=== PATIENT | female | born 1955 | race African-American/Black ===

== ENCOUNTER 2023-12-02 12:09 | Inpatient (IN) | payer MEDICARE, OTHER ==
[~2023-12-02] VITALS: Ht 154.9 cm; Wt 83.0 kg
[~2023-12-02 12:09] MED LIST: ACET-2708 PO; ALBU6.7H3 INH; BENZ2TAB65 PO; CELE100C PO; FERR325T6 PO; GABA-532 PO; IBUP-2029 PO; IMAT400T7 PO; LIP40 PO; METO-539 PO; MIRT-111 PO; MONT-46 PO; QUET300T2 PO
[2023-12-02 15:00] LABS: BASOPHILS % 0.8 % (0.0-2.0); EOSINOPHILS % 1.2 % (0.0-5.0); HEMATOCRIT. 40.6 % (36.0-48.0); HEMOGLOBIN. 13.5 g/dL (12.0-16.0); MEAN CORPUSCULAR HEMOGLOBIN 30.4 pg (28.0-32.0); MEAN CORPUSCULAR HGB CONC 33.3 g/dL (31.0-37.0); MEAN CORPUSCULAR VOLUME 91.4 fL (81.0-99.0); MEAN PLATELET VOLUME 7.6 fl (7.4-10.4); MONOCYTES % 13.1 % (2.0-8.0); NEUTROPHILS % 55.9 % (40.0-76.0); PLATELET 300 x1000/uL (130-400); RED BLOOD CELL COUNT 4.44 mill/uL (4.2-5.4); RED CELL DISTRIBUTION WIDTH 16.3 % (11.6-14.6); WHITE BLOOD COUNT 5.9 x1000/uL (4.5-11.0)
[2023-12-02 15:04] LABS: CLARITY URINE CLEAR (CLEAR); COLOR URINE YELLOW (YELLOW); GLUCOSE URINE NEGATIVE (NEGATIVE); KETONES URINE NEGATIVE (NEGATIVE); LEUKOCYTE ESTERASE URINE NEGATIVE (NEGATIVE); NITRITE URINE NEGATIVE (NEGATIVE); OCCULT BLOOD URINE NEGATIVE (NEGATIVE); PROTEIN URINE NEGATIVE (NEGATIVE); SPECIFIC GRAVITY URINE 1.019 (1.005-1.030); UROBILINOGEN URINE 0.2 E.U./dL (0.2-1.0)
[2023-12-02 15:13] LABS: ALANINE AMINOTRANSFERASE 24 IU/L (10-49); ALBUMIN 4.7 g/dL (3.2-4.8); ASPARTATE AMINOTRANSFERASE 22 IU/L (<34); BILIRUBIN TOTAL 0.6 mg/dL (0.1-1.0); CALCIUM 9.7 mg/dL (8.7-10.4); CARBON DIOXIDE 29 mEq/L (21-32); CHLORIDE 102 mEq/L (98-107); CREATININE 0.7 mg/dL (0.6-1.0); GLUCOSE 104 mg/dL (70-105); POTASSIUM 4.5 mEq/L (3.5-5.1); PROTEIN TOTAL 6.9 g/dL (6.0-8.3); SODIUM 138 mEq/L (136-145); UREA NITROGEN BLOOD 17 mg/dL (9-23)
[2023-12-02 15:40] LABS: TROPONIN I HIGH SENSITIVITY < 4 ng/L (3.0-34)
[2023-12-02] MEDS ORDERED: MAGNESIUM/ALUMINUM HYDROXIDE/SIMETHICONE 30ML UDC PO ONE (16:30)
[2023-12-02 17:52] LABS: TROPONIN I HIGH SENSITIVITY < 4 ng/L (3.0-34)
[2023-12-02] MEDS: MAGNESIUM/ALUMINUM HYDROXIDE/SIMETHICONE 30ML UDC PO NR (21:28)
[2023-12-03] VITALS (7 sets, daily range): BP systolic 95–119; BP diastolic 56–77; PULSE 69–82; RESP 18–20; TEMP 96.9–98.2
[2023-12-03] MEDS ORDERED: DIPHENHYDRAMINE 50MG/ML VIAL IV PRN (01:30)
[2023-12-03] MEDS ORDERED: ACETAMINOPHEN 325MG TABLET PO PRN (01:30)
[2023-12-03] MEDS ORDERED: ZOLPIDEM TARTRATE 5MG TABLET PO PRN (01:30)
[2023-12-03] MEDS ORDERED: MAGNESIUM/ALUMINUM HYDROXIDE/SIMETHICONE 30ML UDC PO PRN (01:30)
[2023-12-03] MEDS ORDERED: ONDANSETRON HCL 4MG/2ML INJ IV PRN (01:30)
[2023-12-03] MEDS ORDERED: CLONIDINE 0.1MG TABLET PO PRN (01:30)
[2023-12-03] MEDS: DEXT 5%/0.45% NACL 1000ML 1,000 ML IV SCH (01:39)
[2023-12-03] MEDS: ACETAMINOPHEN 325MG TABLET PO PRN (01:40)
[2023-12-03] MEDS: SUCRALFATE 1G TABLET PO SCH (06:37)
[2023-12-03] MEDS: FAMOTIDINE 20MG/2ML VIAL IV SCH (08:50)
[2023-12-04] VITALS: BP 103/65; PULSE 66; RESP 19; TEMP 98
[2023-12-04 04:00] VITALS: BP 140/85; PULSE 70; RESP 20; TEMP 97.7
[2023-12-04 08:00] VITALS: BP 114/55; PULSE 69; RESP 18; TEMP 98.6
[2023-12-04 12:00] VITALS: BP 136/67; PULSE 67; RESP 18; TEMP 98.7
[2023-12-04 15:01] VITALS: BP 136/67; PULSE 62; TEMP 98.7; O2SAT 97
== END 2023-12-04 16:10 | disposition home or self-care (01) | DRG 243 ==
LOC: ER 12:09 → EDBEDREQ 22:18 → EDBEDREQTM 22:18 → 6EST 23:45
PROVIDERS: ADMIT Internal Medicine; ATTEND Internal Medicine
DX: K21.9 Gastro-esophageal reflux disease without esophagitis (principal); E66.9 Obesity, unspecified; I10 Essential (primary) hypertension; R30.9 Painful micturition, unspecified; Z68.34 Body mass index [BMI] 34.0-34.9, adult; Z90.49 Acquired absence of other specified parts of digestive tract; Z90.3 Acquired absence of stomach [part of]; Z86.718 Personal history of other venous thrombosis and embolism; Z86.711 Personal history of pulmonary embolism; Z85.028 Personal history of other malignant neoplasm of stomach
CPT/HCPCS: 36415; 71045; 74177; 80053; 81003; 84484; 85025; 93005; 99285; J3490

== ENCOUNTER 2024-01-06 06:07 | Emergency (ER) | payer MEDICARE, OTHER ==
[~2024-01-06] VITALS: Ht 149.9 cm; Wt 86.0 kg
[2024-01-06 06:32] VITALS: O2SAT 100
[2024-01-06 07:15] LABS: BASOPHILS % 0.6 % (0.0-2.0); EOSINOPHILS % 0.5 % (0.0-5.0); HEMATOCRIT. 40.1 % (36.0-48.0); HEMOGLOBIN. 13.8 g/dL (12.0-16.0); LYMPHOCYTES % 18.7 % (20.0-50.0); MEAN CORPUSCULAR HEMOGLOBIN 31.6 pg (28.0-32.0); MEAN CORPUSCULAR HGB CONC 34.5 g/dL (31.0-37.0); MEAN CORPUSCULAR VOLUME 91.4 fL (81.0-99.0); MEAN PLATELET VOLUME 7.8 fl (7.4-10.4); MONOCYTES % 11.3 % (2.0-8.0); NEUTROPHILS % 68.9 % (40.0-76.0); PLATELET 285 x1000/uL (130-400); RED BLOOD CELL COUNT 4.39 mill/uL (4.2-5.4); RED CELL DISTRIBUTION WIDTH 14.5 % (11.6-14.6); WHITE BLOOD COUNT 7.3 x1000/uL (4.5-11.0)
[2024-01-06 07:29] LABS: ALANINE AMINOTRANSFERASE 35 IU/L (10-49); ALBUMIN 4.7 g/dL (3.2-4.8); ASPARTATE AMINOTRANSFERASE 24 IU/L (<34); BILIRUBIN TOTAL 0.4 mg/dL (0.1-1.0); CALCIUM 9.3 mg/dL (8.7-10.4); CARBON DIOXIDE 28 mEq/L (21-32); CHLORIDE 101 mEq/L (98-107); CREATININE 0.7 mg/dL (0.6-1.0); GLUCOSE 120 mg/dL (70-105); POTASSIUM 3.8 mEq/L (3.5-5.1); PROTEIN TOTAL 7.4 g/dL (6.0-8.3); SODIUM 137 mEq/L (136-145); TROPONIN I HIGH SENSITIVITY 8 ng/L (3.0-34); UREA NITROGEN BLOOD 17 mg/dL (9-23)
[2024-01-06 11:17] LABS: CLARITY URINE CLEAR (CLEAR); COLOR URINE YELLOW (YELLOW); GLUCOSE URINE NEGATIVE (NEGATIVE); KETONES URINE NEGATIVE (NEGATIVE); LEUKOCYTE ESTERASE URINE 1+ (NEGATIVE); NITRITE URINE NEGATIVE (NEGATIVE); OCCULT BLOOD URINE NEGATIVE (NEGATIVE); PH URINE 5.5 (4.5-8.0); PROTEIN URINE TRACE (NEGATIVE); SPECIFIC GRAVITY URINE 1.025 (1.005-1.030); UROBILINOGEN URINE 0.2 E.U./dL (0.2-1.0)
[2024-01-06 11:58] LABS: SQUAMOUS EPITHELIAL CELL URINE 3+ /lpf (RARE/1+)
[2024-01-06 12:00] LABS: BACTERIA URINE 1+
[2024-01-06 12:02] LABS: WBC URINE 0-2 /hpf (0-2)
[2024-01-06 12:04] LABS: RBC URINE 0-2 /hpf (0-2)
[2024-01-06 13:30] VITALS: BP 111/58; PULSE 78; RESP 18; TEMP 98.6
[2024-01-06] MEDS ORDERED: FAMO-135 MT (14:00)
[2024-01-06] MEDS ORDERED: FAMOTIDINE 20MG TABLET PO SCH (21:00)
== END 2024-01-06 14:30 | disposition home or self-care (01) ==
LOC: ER 06:07
DX: K29.70 Gastritis, unspecified, without bleeding (principal); I10 Essential (primary) hypertension; Z90.49 Acquired absence of other specified parts of digestive tract; Z79.899 Other long term (current) drug therapy
CPT/HCPCS: 36415; 74177; 80053; 81003; 84484; 85025; 93005; 99284; 99285

== ENCOUNTER 2024-02-20 10:32 | Emergency (ER) | payer MEDICARE, OTHER ==
[~2024-02-20] VITALS: Ht 149.9 cm; Wt 78.0 kg
[~2024-02-20 10:32] MED LIST changes: +FAMO-135 MT; +P20 MT
[2024-02-20 10:50] VITALS: TEMP 98; O2SAT 97
[2024-02-20 14:29] LABS: BASOPHILS % 0.7 % (0.0-2.0); EOSINOPHILS % 1.2 % (0.0-5.0); HEMATOCRIT. 41.5 % (36.0-48.0); HEMOGLOBIN. 13.4 g/dL (12.0-16.0); LYMPHOCYTES % 16.6 % (20.0-50.0); MEAN CORPUSCULAR HEMOGLOBIN 30.5 pg (28.0-32.0); MEAN CORPUSCULAR HGB CONC 32.2 g/dL (31.0-37.0); MEAN CORPUSCULAR VOLUME 94.7 fL (81.0-99.0); MEAN PLATELET VOLUME 7.8 fl (7.4-10.4); MONOCYTES % 10.2 % (2.0-8.0); NEUTROPHILS % 71.3 % (40.0-76.0); PLATELET 187 x1000/uL (130-400); RED BLOOD CELL COUNT 4.38 mill/uL (4.2-5.4); RED CELL DISTRIBUTION WIDTH 15.5 % (11.6-14.6); WHITE BLOOD COUNT 6.2 x1000/uL (4.5-11.0)
[2024-02-20 14:35] LABS: CHLORIDE 109 mEq/L (98-107); POTASSIUM 3.7 mEq/L (3.5-5.1); SODIUM 139 mEq/L (136-145)
[2024-02-20 14:36] LABS: CARBON DIOXIDE 23 mEq/L (21-32)
[2024-02-20 14:46] LABS: CALCIUM 10.1 mg/dL (8.7-10.4)
[2024-02-20 14:51] LABS: CREATININE 0.7 mg/dL (0.6-1.0); GLUCOSE 138 mg/dL (70-105); UREA NITROGEN BLOOD 10 mg/dL (9-23)
[2024-02-20 14:53] LABS: ALANINE AMINOTRANSFERASE 15 IU/L (10-49); ALBUMIN 4.6 g/dL (3.2-4.8); ASPARTATE AMINOTRANSFERASE 19 IU/L (<34); BILIRUBIN TOTAL 0.6 mg/dL (0.1-1.0); PROTEIN TOTAL 7.1 g/dL (6.0-8.3)
[2024-02-20 15:14] LABS: TROPONIN I HIGH SENSITIVITY < 4 ng/L (3.0-34)
[2024-02-20 18:44] LABS: CLARITY URINE CLEAR (CLEAR); COLOR URINE YELLOW (YELLOW); GLUCOSE URINE NEGATIVE (NEGATIVE); KETONES URINE NEGATIVE (NEGATIVE); LEUKOCYTE ESTERASE URINE NEGATIVE (NEGATIVE); NITRITE URINE NEGATIVE (NEGATIVE); OCCULT BLOOD URINE NEGATIVE (NEGATIVE); PROTEIN URINE NEGATIVE (NEGATIVE); SPECIFIC GRAVITY URINE 1.029 (1.005-1.030); UROBILINOGEN URINE 0.2 E.U./dL (0.2-1.0)
[2024-02-20] MEDS: KETOROLAC 15MG/ML VIAL IM NR (20:00)
[2024-02-20 20:45] LABS: CARBON DIOXIDE 27 mEq/L (21-32); CHLORIDE 107 mEq/L (98-107); SODIUM 139 mEq/L (136-145)
[2024-02-20 20:46] LABS: CALCIUM 10.2 mg/dL (8.7-10.4)
[2024-02-20 20:50] LABS: CREATININE 0.7 mg/dL (0.6-1.0); GLUCOSE 91 mg/dL (70-105)
[2024-02-20 20:51] LABS: UREA NITROGEN BLOOD 12 mg/dL (9-23)
[2024-02-20 20:52] LABS: ALANINE AMINOTRANSFERASE 15 IU/L (10-49); ALBUMIN 4.8 g/dL (3.2-4.8); ASPARTATE AMINOTRANSFERASE 16 IU/L (<34)
[2024-02-20 20:53] LABS: BILIRUBIN TOTAL 0.8 mg/dL (0.1-1.0); PROTEIN TOTAL 7.2 g/dL (6.0-8.3)
[2024-02-20 22:05] VITALS: BP 120/81; PULSE 81; RESP 19
== END 2024-02-20 22:07 | disposition home or self-care (01) ==
LOC: ER 11:06
DX: R10.84 Generalized abdominal pain (principal); J45.909 Unspecified asthma, uncomplicated; E11.9 Type 2 diabetes mellitus without complications; F19.90 Other psychoactive substance use, unspecified, uncomplicated; Z88.8 Allergy status to other drugs, medicaments and biological substances
CPT/HCPCS: 99285; 74176; 71045; 81003; 81025; 83690; 85025; 84484; 36415; 93005; 96372; 80053; J1885

== ENCOUNTER 2024-03-09 08:51 | Emergency (ER) | payer MEDICARE, OTHER ==
[~2024-03-09] VITALS: Ht 160 cm; Wt 64.0 kg
[2024-03-09 08:55] VITALS: O2SAT 98
[2024-03-09 10:12] LABS: BASOPHILS % 0.5 % (0.0-2.0); EOSINOPHILS % 0.3 % (0.0-5.0); HEMATOCRIT. 46.9 % (36.0-48.0); HEMOGLOBIN. 15.5 g/dL (12.0-16.0); MEAN CORPUSCULAR HEMOGLOBIN 30.5 pg (28.0-32.0); MEAN CORPUSCULAR HGB CONC 33.1 g/dL (31.0-37.0); MEAN CORPUSCULAR VOLUME 92.1 fL (81.0-99.0); MEAN PLATELET VOLUME 8.7 fl (7.4-10.4); MONOCYTES % 10.3 % (2.0-8.0); NEUTROPHILS % 67.9 % (40.0-76.0); PLATELET 289 x1000/uL (130-400); RED BLOOD CELL COUNT 5.09 mill/uL (4.2-5.4); RED CELL DISTRIBUTION WIDTH 15.1 % (11.6-14.6); WHITE BLOOD COUNT 5.9 x1000/uL (4.5-11.0)
[2024-03-09 10:23] LABS: CHLORIDE 101 mEq/L (98-107); POTASSIUM 4.4 mEq/L (3.5-5.1); SODIUM 136 mEq/L (136-145)
[2024-03-09 10:24] LABS: CALCIUM 10.2 mg/dL (8.7-10.4)
[2024-03-09 10:29] LABS: CREATININE 0.8 mg/dL (0.6-1.0); GLUCOSE 103 mg/dL (70-105); UREA NITROGEN BLOOD 16 mg/dL (9-23)
[2024-03-09 10:30] LABS: ALANINE AMINOTRANSFERASE 73 IU/L (10-49); ASPARTATE AMINOTRANSFERASE 42 IU/L (<34)
[2024-03-09 10:31] LABS: ALBUMIN 5.4 g/dL (3.2-4.8); BILIRUBIN DIRECT 0.4 mg/dL (<=3.0); BILIRUBIN TOTAL 1.1 mg/dL (0.1-1.0); PROTEIN TOTAL 8.2 g/dL (6.0-8.3)
[2024-03-09 11:08] LABS: CARBON DIOXIDE 20 mEq/L (21-32)
[2024-03-09 14:38] VITALS: BP 139/88; PULSE 76; RESP 16; TEMP 98.1
== END 2024-03-09 14:37 | disposition home or self-care (01) ==
LOC: ER 08:51
DX: R10.9 Unspecified abdominal pain (principal); E11.9 Type 2 diabetes mellitus without complications; J45.909 Unspecified asthma, uncomplicated; Z79.899 Other long term (current) drug therapy
CPT/HCPCS: 36415; 74176; 80048; 80076; 85025; 93005; 99284

== ENCOUNTER 2024-04-07 14:47 | Emergency (ER) | payer MEDICARE, OTHER ==
[~2024-04-07] VITALS: Ht 167.6 cm; Wt 80.0 kg
[2024-04-07 15:08] LABS: BASOPHILS % 0.4 % (0.0-2.0); EOSINOPHILS % 1.2 % (0.0-5.0); HEMOGLOBIN. 12.7 g/dL (12.0-16.0); LYMPHOCYTES % 21.6 % (20.0-50.0); MEAN CORPUSCULAR HEMOGLOBIN 30.6 pg (28.0-32.0); MEAN CORPUSCULAR HGB CONC 33.5 g/dL (31.0-37.0); MEAN CORPUSCULAR VOLUME 91.5 fL (81.0-99.0); MEAN PLATELET VOLUME 7.1 fl (7.4-10.4); MONOCYTES % 11.7 % (2.0-8.0); NEUTROPHILS % 65.1 % (40.0-76.0); PLATELET 305 x1000/uL (130-400); RED BLOOD CELL COUNT 4.15 mill/uL (4.2-5.4); RED CELL DISTRIBUTION WIDTH 15.4 % (11.6-14.6); WHITE BLOOD COUNT 6.2 x1000/uL (4.5-11.0)
[2024-04-07 15:14] LABS: CHLORIDE 110 mEq/L (98-107); POTASSIUM 3.9 mEq/L (3.5-5.1); SODIUM 142 mEq/L (136-145)
[2024-04-07 15:15] LABS: CALCIUM 9.7 mg/dL (8.7-10.4); CARBON DIOXIDE 26 mEq/L (21-32)
[2024-04-07 15:20] VITALS: TEMP 98.4; O2SAT 100
[2024-04-07 15:20] LABS: CREATININE 0.6 mg/dL (0.6-1.0); GLUCOSE 94 mg/dL (70-105); UREA NITROGEN BLOOD 14 mg/dL (9-23)
[2024-04-07 20:38] LABS: ALANINE AMINOTRANSFERASE 16 IU/L (10-49); ALBUMIN 4.1 g/dL (3.2-4.8); ASPARTATE AMINOTRANSFERASE 17 IU/L (<34); BILIRUBIN DIRECT 0.1 mg/dL (<=3.0); BILIRUBIN TOTAL 0.5 mg/dL (0.1-1.0); PROTEIN TOTAL 6.2 g/dL (6.0-8.3)
[2024-04-07] MEDS: MORPHINE SULFATE 2 MG/ML CPJ (NOT FOR IM USE) IV ONE (21:33)
[2024-04-07] MEDS: KETOROLAC 15MG/ML VIAL IV ONE (21:33)
[2024-04-07 23:54] LABS: CLARITY URINE CLEAR (CLEAR); COLOR URINE YELLOW (YELLOW); GLUCOSE URINE NEGATIVE (NEGATIVE); KETONES URINE NEGATIVE (NEGATIVE); LEUKOCYTE ESTERASE URINE 1+ (NEGATIVE); NITRITE URINE NEGATIVE (NEGATIVE); OCCULT BLOOD URINE NEGATIVE (NEGATIVE); PROTEIN URINE NEGATIVE (NEGATIVE); SPECIFIC GRAVITY URINE 1.021 (1.005-1.030); UROBILINOGEN URINE 0.2 E.U./dL (0.2-1.0)
[2024-04-08] VITALS: BP 129/84; PULSE 74; RESP 20
[2024-04-08 00:55] LABS: RBC URINE 0-2 /hpf (0-2); WBC URINE 0-2 /hpf (0-2)
[2024-04-08 00:58] LABS: BACTERIA URINE NONE SEEN; SQUAMOUS EPITHELIAL CELL URINE FEW /lpf (RARE/1+)
== END 2024-04-08 00:49 | disposition home or self-care (01) ==
LOC: ER 15:03
DX: R10.9 Unspecified abdominal pain (principal); M79.10 Myalgia, unspecified site; M25.511 Pain in right shoulder; J45.909 Unspecified asthma, uncomplicated; E11.9 Type 2 diabetes mellitus without complications; I10 Essential (primary) hypertension; Z79.899 Other long term (current) drug therapy
CPT/HCPCS: 80076; 80048; 81003; 85025; 36415; 71045; 74176; 93005; 96374; 96375; 99285; J1885; J2270; Z7610

== ENCOUNTER 2024-06-03 10:22 | Emergency (ER) | payer MEDICARE, MEDICAID ==
[~2024-06-03] VITALS: Ht 149.9 cm; Wt 78.0 kg
[2024-06-03 10:43] VITALS: TEMP 98.7; O2SAT 99
[2024-06-03 11:26] LABS: BASOPHILS % 0.5 % (0.0-2.0); EOSINOPHILS % 0.7 % (0.0-5.0); HEMATOCRIT. 38.7 % (36.0-48.0); HEMOGLOBIN. 12.6 g/dL (12.0-16.0); LYMPHOCYTES % 21.4 % (20.0-50.0); MEAN CORPUSCULAR HEMOGLOBIN 30.4 pg (28.0-32.0); MEAN CORPUSCULAR HGB CONC 32.6 g/dL (31.0-37.0); MEAN CORPUSCULAR VOLUME 93.3 fL (81.0-99.0); MEAN PLATELET VOLUME 7.4 fl (7.4-10.4); MONOCYTES % 11.7 % (2.0-8.0); NEUTROPHILS % 65.7 % (40.0-76.0); PLATELET 274 x1000/uL (130-400); RED BLOOD CELL COUNT 4.15 mill/uL (4.2-5.4); RED CELL DISTRIBUTION WIDTH 15.6 % (11.6-14.6); WHITE BLOOD COUNT 4.5 x1000/uL (4.5-11.0)
[2024-06-03 11:31] LABS: CHLORIDE 108 mEq/L (98-107); POTASSIUM 4.2 mEq/L (3.5-5.1); SODIUM 142 mEq/L (136-145)
[2024-06-03 11:32] LABS: CALCIUM 9.7 mg/dL (8.7-10.4); CARBON DIOXIDE 30 mEq/L (21-32)
[2024-06-03 11:37] LABS: CREATININE 0.6 mg/dL (0.6-1.0); GLUCOSE 97 mg/dL (70-105); UREA NITROGEN BLOOD 15 mg/dL (9-23)
[2024-06-03 11:39] LABS: ALANINE AMINOTRANSFERASE 21 IU/L (10-49); ALBUMIN 4.4 g/dL (3.2-4.8); ASPARTATE AMINOTRANSFERASE 20 IU/L (<34); BILIRUBIN DIRECT 0.2 mg/dL (<=3.0)
[2024-06-03 11:40] LABS: BILIRUBIN TOTAL 0.6 mg/dL (0.1-1.0); PROTEIN TOTAL 6.6 g/dL (6.0-8.3)
[2024-06-03] MEDS: FAMOTIDINE 20MG TABLET PO ONE (11:59)
[2024-06-03] MEDS: HYDROCODONE/ACETAMINOPHEN 5/325MG TABLET PO STA (11:59)
[2024-06-03 13:52] LABS: CLARITY URINE CLEAR (CLEAR); COLOR URINE YELLOW (YELLOW); GLUCOSE URINE NEGATIVE (NEGATIVE); KETONES URINE NEGATIVE (NEGATIVE); LEUKOCYTE ESTERASE URINE NEGATIVE (NEGATIVE); NITRITE URINE NEGATIVE (NEGATIVE); OCCULT BLOOD URINE NEGATIVE (NEGATIVE); PROTEIN URINE NEGATIVE (NEGATIVE); SPECIFIC GRAVITY URINE 1.022 (1.005-1.030)
[2024-06-03] MEDS ORDERED: FAMO40TA70 MT (14:07)
[2024-06-03] MEDS ORDERED: IBUP-2028 MT (14:07)
[2024-06-03 14:27] VITALS: BP 135/70; PULSE 70; RESP 18; O2SAT 97
== END 2024-06-03 14:30 | disposition home or self-care (01) ==
LOC: ER 10:41
DX: R10.32 Left lower quadrant pain (principal); R10.13 Epigastric pain; F19.90 Other psychoactive substance use, unspecified, uncomplicated; J45.909 Unspecified asthma, uncomplicated; E11.9 Type 2 diabetes mellitus without complications; I10 Essential (primary) hypertension; Z98.890 Other specified postprocedural states; Z79.899 Other long term (current) drug therapy
CPT/HCPCS: 36415; 74176; 80048; 80076; 81003; 85025; 93005; 99284

== ENCOUNTER 2024-06-26 06:19 | Emergency (ER) | payer MEDICARE, MEDICAID ==
[~2024-06-26] VITALS: Ht 149.9 cm; Wt 78.3 kg
[~2024-06-26 06:19] MED LIST changes: +FAMO40TA70 MT; +IBUP-2028 MT; -MIRT-111 PO; +MIRT-145 PO
[2024-06-26 06:29] VITALS: O2SAT 99
[2024-06-26] MEDS: KETOROLAC 30MG/ML VIAL IM ONE (08:58)
[2024-06-26] MEDS: PREDNISONE 20MG TABLET PO ONE (08:58)
[2024-06-26] MEDS ORDERED: DIPH25CA83 MT (09:01)
[2024-06-26] MEDS ORDERED: P20 MT (09:01)
[2024-06-26] MEDS ORDERED: IBUP-2029 MT (09:01)
[2024-06-26 09:13] VITALS: BP 148/87; PULSE 78; RESP 16; TEMP 37.00296; O2SAT 99
== END 2024-06-26 13:28 | disposition home or self-care (01) ==
LOC: ER 06:19
DX: R52 Pain, unspecified (principal); R21 Rash and other nonspecific skin eruption; J45.909 Unspecified asthma, uncomplicated; E11.9 Type 2 diabetes mellitus without complications; I10 Essential (primary) hypertension; F19.90 Other psychoactive substance use, unspecified, uncomplicated; Z98.890 Other specified postprocedural states; Z79.899 Other long term (current) drug therapy
CPT/HCPCS: 99283; 96372; J7512; J1885

== ENCOUNTER 2025-06-30 10:47 | Emergency (ER) | payer MEDICARE, MEDICAID ==
[~2025-06-30] VITALS: Ht 149.9 cm; Wt 75.0 kg
[~2025-06-30 10:47] MED LIST changes: +DIPH25CA83 MT; +GABA-1180 PO; -GABA-532 PO; +IBUP-1455 MT; +IBUP-1455 PO; -IBUP-2029 PO
[2025-06-30 11:01] VITALS: TEMP 36.6; O2SAT 98
[2025-06-30 15:22] LABS: CLARITY URINE CLEAR (CLEAR); COLOR URINE YELLOW (YELLOW); GLUCOSE URINE NEGATIVE (NEGATIVE); KETONES URINE NEGATIVE (NEGATIVE); LEUKOCYTE ESTERASE URINE NEGATIVE (NEGATIVE); NITRITE URINE NEGATIVE (NEGATIVE); OCCULT BLOOD URINE NEGATIVE (NEGATIVE); PH URINE 6.0 (4.5-8.0); PROTEIN URINE NEGATIVE (NEGATIVE); SPECIFIC GRAVITY URINE 1.023 (1.005-1.030); UROBILINOGEN URINE 1.0 E.U./dL (0.2-1.0)
[2025-06-30 16:07] VITALS: TEMP 97.8
[2025-06-30] MEDS: ACETAMINOPHEN 325MG TABLET PO NR (16:07)
[2025-06-30] MEDS ORDERED: GABA-1180 MT (16:42)
[2025-06-30] MEDS ORDERED: ACET-2708 PO (16:42)
[2025-06-30 17:44] VITALS: BP 141/77; PULSE 70; RESP 16; O2SAT 100
== END 2025-06-30 17:48 | disposition home or self-care (01) ==
LOC: ER 10:47
DX: S70.02XA Contusion of left hip, initial encounter (principal); S70.12XA Contusion of left thigh, initial encounter; M54.42 Lumbago with sciatica, left side; M19.90 Unspecified osteoarthritis, unspecified site; I10 Essential (primary) hypertension; E11.9 Type 2 diabetes mellitus without complications; Z95.828 Presence of other vascular implants and grafts; Z85.028 Personal history of other malignant neoplasm of stomach; Z79.899 Other long term (current) drug therapy; Z79.1 Long term (current) use of non-steroidal anti-inflammatories (NSAID); W01.0XXA Fall on same level from slipping, tripping and stumbling without subsequent striking against object, initial encounter; Y93.89 Activity, other specified; Y92.89 Other specified places as the place of occurrence of the external cause; Y99.8 Other external cause status
CPT/HCPCS: 72100; 73110; 73522; 74176; 81003; 93971; 99284